=== PATIENT | female | born 1990 | race African-American/Black ===

== ENCOUNTER 2017-02-15 16:22 | Emergency (ER) | payer SELFPAY ==
[~2017-02-15] VITALS: Ht 162.6 cm; Wt 59.0 kg
[2017-02-15 16:30] VITALS: BP 133/93
[2017-02-15] MEDS ORDERED: Methocarbamol 750mg tab ORAL ONE (17:15)
[2017-02-15 18:30] VITALS: BP 126/86
[2017-02-15] MEDS ORDERED: IBUPROFEN600 MG ORAL (18:30)
[2017-02-15] MEDS ORDERED: ROBAXIN-750750 MG PO (18:30)
[2017-02-15 19:28] VITALS: BP 126/86
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
== END 2017-02-15 18:45 | disposition home or self-care (01) ==
LOC: EDBD 16:22 → EMR 16:51
DX: S16.1XXA Strain of muscle, fascia and tendon at neck level, initial encounter (principal); V43.62XA Car passenger injured in collision with other type car in traffic accident, initial encounter; Y92.410 Unspecified street and highway as the place of occurrence of the external cause
CPT/HCPCS: 72040; 99284